=== PATIENT | female | born 1980 | race Caucasian/White ===

== ENCOUNTER 2017-12-02 21:29 | Observation (INO) | payer OTHER, BC, MEDICAID ==
[2017-12-02 22:13] LABS: ADD MAN DIFF? NO
[2017-12-02 22:14] LABS: INR 0.94; PARTIAL THROMBOPLASTIN TIME 29.7 Sec (25.0-35.0); PROTIME 12.7 Sec (11.9-14.9)
[2017-12-02 22:15] LABS: BASOPHILS % 0.5 % (0.0-2.0); EOSINOPHILS # 0.1 10^3/ul (0.0-0.5); EOSINOPHILS % 1.7 % (0.0-7.0); HEMATOCRIT 34.8 % (37.0-47.0); HEMOGLOBIN 12.3 g/dl (12.0-16.0); LYMPHOCYTES # 2.1 10^3/ul (0.8-2.9); LYMPHOCYTES % 25.8 % (15.0-51.0); MEAN CORPUSCULAR HEMOGLOBIN 34.2 pg (29.0-33.0); MEAN CORPUSCULAR HGB CONC 35.3 g/dl (32.0-37.0); MEAN CORPUSCULAR VOLUME 96.7 fl (82.0-101.0); MEAN PLATELET VOLUME 9.8 fl (7.4-10.4); MONOCYTE # 0.6 10^3/ul (0.3-0.9); MONOCYTES % 7.4 % (0.0-11.0); NEUTROPHIL # 5.3 10^3/ul (1.6-7.5); NEUTROPHILS % 64.5 % (39.0-77.0); PLATELET COUNT 237 10^3/UL (140-415); RED CELL DISTRIBUTION WIDTH 12.5 % (11.5-14.5)
[2017-12-02 22:15] LABS: WHITE BLOOD COUNT 8.3 10^3/ul (4.8-10.8)
[2017-12-02 22:16] LABS: ANION GAP 17 (8-16); BLOOD UREA NITROGEN 11 mg/dl (7-20); CALCIUM 9.3 mg/dl (8.4-10.2); CARBON DIOXIDE 21 mmol/L (21-31); CHLORIDE 109 mmol/L (97-110); GLUCOSE 108 mg/dl (70-220); POTASSIUM 4.1 mmol/L (3.5-5.1); SODIUM 143 mmol/L (135-144)
[2017-12-02 22:30] LABS: TROPONIN-I < 0.012 ng/ml (0.00-0.12)
[2017-12-02] MEDS: DIPHENHYDRAMINE 50 MG INJ IV (22:30)
[2017-12-02] MEDS: HYDROmorphONE 1 MG/ML SYG IV (22:30)
[2017-12-02] MEDS: SOD CHLORIDE 0.9% 1,000 ML IV (22:30)
[2017-12-02] MEDS: METOCLOPRAMIDE 10 MG INJ IV (22:30)
[2017-12-02] MEDS: HYDROmorphONE 0.5 MG/0.5 ML SYG IV (22:30)
[2017-12-03] MEDS: ASPIRIN 325 MG TAB PO (00:43)
[2017-12-03] MEDS: SOD CHLORIDE 0.9% 1,000 ML IV (00:43)
[2017-12-03] MEDS ORDERED: ACETAMINOPHEN 325 MG TAB PO ×2 (02:30)
[2017-12-03] MEDS ORDERED: ACET/BUTAL/CAFF TAB PO (02:30)
[2017-12-03] MEDS ORDERED: NACL 0.9% 3 ML SYG IV (02:30)
[2017-12-03] MEDS ORDERED: ONDANSETRON 4 MG INJ IV ×2 (02:30)
[2017-12-03] MEDS ORDERED: CARISOPRODOL 350 MG TAB PO (02:30)
[2017-12-03] MEDS: LEVOTHYROXINE 100 MCG TAB PO (06:35)
[2017-12-03] MEDS: morphine 2 MG INJ IV ×2 (06:35→21:52)
[2017-12-03] MEDS: ASPIRIN 81 MG TAB PO (08:24)
[2017-12-03] MEDS: FAMOTIDINE 20 MG TAB PO ×2 (08:24→21:51)
[2017-12-03] MEDS: DULOXETINE 30 MG CAP DR PO (08:24)
[2017-12-03] MEDS: ENOXAPARIN 40 MG/0.4 ML SYG SC (08:26)
[2017-12-03 09:01] LABS: ADD MAN DIFF? NO
[2017-12-03 09:13] LABS: WHITE BLOOD COUNT 10.9 10^3/ul (4.8-10.8)
[2017-12-03 09:13] LABS: BASOPHIL # 0.1 10^3/ul (0.0-0.1); BASOPHILS % 0.5 % (0.0-2.0); EOSINOPHILS # 0.2 10^3/ul (0.0-0.5); EOSINOPHILS % 1.4 % (0.0-7.0); HEMATOCRIT 34.1 % (37.0-47.0); HEMOGLOBIN 11.7 g/dl (12.0-16.0); LYMPHOCYTES # 1.9 10^3/ul (0.8-2.9); LYMPHOCYTES % 17.7 % (15.0-51.0); MEAN CORPUSCULAR HGB CONC 34.3 g/dl (32.0-37.0); MEAN CORPUSCULAR VOLUME 99.1 fl (82.0-101.0); MEAN PLATELET VOLUME 10.3 fl (7.4-10.4); MONOCYTE # 0.6 10^3/ul (0.3-0.9); MONOCYTES % 5.9 % (0.0-11.0); NEUTROPHIL # 8.1 10^3/ul (1.6-7.5); NEUTROPHILS % 74.1 % (39.0-77.0); PLATELET COUNT 230 10^3/UL (140-415); RED BLOOD COUNT 3.44 10^6/ul (4.20-5.40); RED CELL DISTRIBUTION WIDTH 12.8 % (11.5-14.5)
[2017-12-03 09:47] LABS: ALANINE AMINOTRANSFERASE 18 IU/L (13-69); ALBUMIN 3.5 g/dl (3.3-4.9); ALBUMIN/GLOBULIN RATIO 1.16; ALKALINE PHOSPHATASE 51 IU/L (42-121); ANION GAP 13 (8-16); ASPARTATE AMINO TRANSFERASE 22 IU/L (15-46); BILIRUBIN,INDIRECT 0.1 mg/dl (0-1.1); BILIRUBIN,TOTAL 0.1 mg/dl (0.2-1.3); BLOOD UREA NITROGEN 10 mg/dl (7-20); CALCIUM 8.3 mg/dl (8.4-10.2); CARBON DIOXIDE 23 mmol/L (21-31); CHLORIDE 112 mmol/L (97-110); CHOL/HDL RATIO 3.5 RATIO; CHOLESTEROL 165 mg/dl (100-200); CREATININE 0.78 mg/dl (0.44-1.00); GLUCOSE 78 mg/dl (70-220); HDL CHOLESTEROL 46 mg/dl (34-82); LDL CHOLESTEROL,CALCULATED 98 mg/dl; MAGNESIUM 1.8 mg/dl (1.7-2.5); POTASSIUM 4.1 mmol/L (3.5-5.1); SODIUM 144 mmol/L (135-144); TOTAL PROTEIN 6.5 g/dl (6.1-8.1); TRIGLYCERIDES 104 mg/dl (0-149)
[2017-12-03 12:01] LABS: T4 (THYROXINE) 4.2 ug/dl (5.5-11.0)
[2017-12-03 12:02] LABS: FREE THYROXINE INDEX (Calc) 1.18 ug/ml (0.65-3.89); T3 UPTAKE 28.2 % (23.5-40.5)
[2017-12-03] MEDS: DEXAMETHASONE 10 MG/ML 1 ML INJ IV (13:54)
[2017-12-03] MEDS: LIOTHYRONINE 5 MCG TAB PO ×2 (17:23→21:51)
[2017-12-03] MEDS: ATORVASTATIN 20 MG TAB PO (21:51)
[2017-12-03] MEDS: MONTELUKAST 10 MG TAB PO (23:05)
[2017-12-04] MEDS: LEVOTHYROXINE 100 MCG TAB PO (06:29)
[2017-12-04] MEDS: KETOROLAC 30 MG INJ IV (06:35)
[2017-12-04] MEDS: DULOXETINE 30 MG CAP DR PO (08:13)
[2017-12-04] MEDS: ASPIRIN 81 MG TAB PO (08:14)
[2017-12-04] MEDS: LIOTHYRONINE 5 MCG TAB PO (08:14)
[2017-12-04] MEDS: FAMOTIDINE 20 MG TAB PO (08:14)
[2017-12-04] MEDS: ENOXAPARIN 40 MG/0.4 ML SYG SC (08:19)
[2017-12-04 08:43] LABS: ADD MAN DIFF? NO
[2017-12-04 08:50] LABS: WHITE BLOOD COUNT 10.5 10^3/ul (4.8-10.8)
[2017-12-04 08:50] LABS: BASOPHILS % 0.3 % (0.0-2.0); EOSINOPHILS # 0.1 10^3/ul (0.0-0.5); EOSINOPHILS % 0.5 % (0.0-7.0); HEMATOCRIT 33.8 % (37.0-47.0); HEMOGLOBIN 11.9 g/dl (12.0-16.0); LYMPHOCYTES # 1.8 10^3/ul (0.8-2.9); LYMPHOCYTES % 17.6 % (15.0-51.0); MEAN CORPUSCULAR HEMOGLOBIN 33.9 pg (29.0-33.0); MEAN CORPUSCULAR HGB CONC 35.2 g/dl (32.0-37.0); MEAN CORPUSCULAR VOLUME 96.3 fl (82.0-101.0); MEAN PLATELET VOLUME 10.2 fl (7.4-10.4); MONOCYTE # 0.7 10^3/ul (0.3-0.9); MONOCYTES % 6.6 % (0.0-11.0); NEUTROPHIL # 7.8 10^3/ul (1.6-7.5); NEUTROPHILS % 74.6 % (39.0-77.0); PLATELET COUNT 226 10^3/UL (140-415); RED BLOOD COUNT 3.51 10^6/ul (4.20-5.40); RED CELL DISTRIBUTION WIDTH 12.4 % (11.5-14.5)
[2017-12-04 09:15] LABS: ANION GAP 14 (8-16); BLOOD UREA NITROGEN 13 mg/dl (7-20); CARBON DIOXIDE 23 mmol/L (21-31); CHLORIDE 108 mmol/L (97-110); CREATININE 0.74 mg/dl (0.44-1.00); GLUCOSE 84 mg/dl (70-220); POTASSIUM 3.8 mmol/L (3.5-5.1); SODIUM 141 mmol/L (135-144)
== END 2017-12-04 14:30 | disposition home or self-care (01) ==
LOC: E/R 21:29 → MS4 23:58
PROVIDERS: Internal Medicine
DX: G43.809 Other migraine, not intractable, without status migrainosus (principal); E03.9 Hypothyroidism, unspecified; F17.200 Nicotine dependence, unspecified, uncomplicated; M19.90 Unspecified osteoarthritis, unspecified site; G81.94 Hemiplegia, unspecified affecting left nondominant side; F32.9 Major depressive disorder, single episode, unspecified; R29.810 Facial weakness; J45.909 Unspecified asthma, uncomplicated; S82.891G Other fracture of right lower leg, subsequent encounter for closed fracture with delayed healing; X58.XXXD Exposure to other specified factors, subsequent encounter
CPT/HCPCS: 70450; 70551; 71045; 80048; 80053; 80061; 82962; 83036; 83735; 84436; 84443; 84479; 84484; 85025; 85610; 85730; 92610; 93005; 93306; 93880; 96374; 96375; 97116; 97163; 97530; 99285-25; G0378